=== PATIENT | female | born 1955 | race Caucasian/White ===

== ENCOUNTER 2020-03-22 15:03 | Emergency (ER) | payer MEDICAID ==
[~2020-03-22] VITALS: Ht 154.9 cm; Wt 64.4 kg
[2020-03-22 15:11] VITALS: Ht 154.9 cm; Wt 64.4 kg
[2020-03-22 16:30] VITALS: BP 183/88
== END 2020-03-22 16:30 | disposition home or self-care (01) ==
LOC: ED 15:03
DX: B02.9 Zoster without complications (principal); I10 Essential (primary) hypertension; E11.9 Type 2 diabetes mellitus without complications; E78.00 Pure hypercholesterolemia, unspecified